=== PATIENT | female | born 2000 | race Caucasian/White ===

== ENCOUNTER 2024-04-21 01:18 | Emergency (ER) | payer BC ==
[2024-04-21] MEDS ORDERED: Ketorolac Tromethamine 30 MG (1 mL) VIAL ONE (01:38)
[2024-04-21] MEDS ORDERED: predniSONE 20 MG TAB ONE (01:39)
== END 2024-04-21 02:27 | disposition home or self-care (01) ==
LOC: ERS 01:18
DX: H65.92 Unspecified nonsuppurative otitis media, left ear (principal)
CPT/HCPCS: 96372; 99282; J1885; J7512